=== PATIENT | female | born 1965 | race Caucasian/White ===

== ENCOUNTER → 2018-09-07 | Outpatient (CLI) | payer OTHER ==
[~2018-09-07] MED LIST: PRED20TA6 PO
[2018-09-07 11:47] LABS: PLATELET COUNT, AUTOMATED 260 K/uL (150-450)
[2018-09-07 12:02] LABS: LDL CHOLESTEROL 75 mg/dl
== END ==
LOC: LAB 11:08
PROVIDERS: ATTEND Internal Medicine
DX: Z00.00 Encounter for general adult medical examination without abnormal findings (principal)
CPT/HCPCS: 36415; 81001; 82040; 82247; 82310; 82374; 82435; 82465; 82565; 82947; 83718; 84075; 84132; 84155; 84295; 84443; 84450; 84460; 84478; 84520; 85025

== ENCOUNTER → 2018-09-26 | Outpatient (CLI) | payer OTHER ==
--- NOTE | 2018-09-26 15:53 | RADIOLOGY IMAGING REPORT ---
FACILITY: [facility] [place] PATIENT NAME: Pat Rose : 1965 MR: [id number] V: [id number] EXAM DATE: ORDERING PHYSICIAN: CASSIDY DAVIS TECHNOLOGIST: Location: [facility] [place] Patient: Pat Rose : 1965 Visit/Account:[id number] Date of Sevice: 09/26/2018 Exam type: ELBOW 3 VIEW LEFT History: Left elbow pain no known injury Comparison: None. Findings: Three views of the left elbow demonstrate no evidence of acute fracture, dislocation or significant a rthritic change. No lytic or blastic bone lesions are seen IMPRESSION: 1. No osteoarticular abnormality the left elbow is seen Report Dictated By: Sarah White MD at 09/26/2018 3:46 PM Report E-Signed By: Sarah White MD at 09/26/2018 3:47 PM WSN:[email or web address]
== END ==
LOC: RAD 15:10
PROVIDERS: ATTEND Internal Medicine
DX: M25.522 Pain in left elbow (principal)

== ENCOUNTER → 2018-12-15 | Outpatient (REF) ==
[2018-12-15 09:25] LABS: LDL CHOLESTEROL 75 mg/dl
== END ==
DX: Z02.9 Encounter for administrative examinations, unspecified (principal)